=== PATIENT | male | born 1950 | race Caucasian/White ===

== ENCOUNTER 2016-07-22 17:01 | Inpatient (IN) | payer MEDICARE, OTHER ==
[~2016-07-22] VITALS: Ht 177.8 cm; Wt 83.1 kg
[2016-07-22 17:50] LABS: BASO % 1 % (0-3); EOS % 1 % (0-3); HEMATOCRIT 41.8 % (39.0-53.0); HEMOGLOBIN 13.9 g/dL (13.0-17.5); LYMPH # 1.9 x10^3/uL (1.0-4.8); LYMPH % 24 % (24-48); MEAN CORPUSCULAR HEMOGLOBIN 32 pg (25-35); MEAN CORPUSCULAR HGB CONC 33 g/dL (31-37); MEAN CORPUSCULAR VOLUME 97 fL (79-100); MONO % 7 % (0-9); NEUT % 68 % (31-73); PLATELET COUNT 175 x10^3/uL (140-400); RED BLOOD COUNT 4.32 x10^6/uL (4.30-5.70); RED CELL DISTRIBUTION WIDTH 13.2 % (11.5-14.5)
[2016-07-22 18:01] LABS: CALCIUM 9.1 mg/dL (8.5-10.1); GFR 74.8; POTASSIUM 4.3 mmol/L (3.5-5.1)
[2016-07-22 18:07] LABS: ALBUMIN 3.7 g/dL (3.4-5.0); DIRECT BILIRUBIN 0.1 mg/dL (0.0-0.2); TOTAL BILIRUBIN 0.5 mg/dL (0.2-1.0); TOTAL PROTEIN 6.7 g/dL (6.4-8.2)
--- NOTE | 2016-07-22 19:00 | RAD ---
PROCEDURE CT head without contrast. HISTORY Balance difficulties and left-sided weakness. TECHNIQUE Noncontrast CT head was obtained. One or more of the following individualized dose reduction techniques were utilized for this exam: 1. Automated exposure control. 2. Adjustment of the mA and/or kV according to patient's size. 3. Use of iterative reconstruction technique. COMPARISON None. FINDINGS Subdural collection on the right overlies the frontal and parietal lobes measuring up to 3 centimeters short axis, lobulated in appearance. This has hyperdense and hypodense components, mostly hypodense. There is significant mass effect on the underlying brain parenchyma with 14 millimeters of midline shift at the level of the foramen of Monro. No definite intraparenchymal hemorrhage is identified. There is no acute infarct. There is mass effect on the right lateral ventricle, mild left lateral ventricle entrapment suspected. There is no depressed skull fracture. Paranasal sinuses and mastoid air cells are clear. This critical report was called to Dr. Perry at 1855 hours. IMPRESSION Subdural collection on the right, has hyperdense and hypodense components. This is most likely a subacute subdural hematoma. Additional history from the ER physician includes fall about a month ago. Neurosurgery consult is advised. Electronically signed by: Fer Kirby MD (Jul 22, 2016 18:59:13)
[2016-07-22] MEDS ORDERED: PROPOFOL 20 ML IV ONE (20:00)
[2016-07-22] MEDS ORDERED: DEXAMETHASONE SOD PHOS 20 MG/5 ML VIAL. ONE (20:01)
[2016-07-22] MEDS ORDERED: LIDOCAINE 2% 100 MG/5 ML DISP.SYRIN. ONE (20:01)
[2016-07-22] MEDS ORDERED: ONDANSETRON PF 4 MG/2 ML VIAL. ONE (20:01)
--- NOTE | 2016-07-22 20:01 | PDOC ---
SUBJECTIVE Subjective Briefly, 66M who present to ED with increased left sided weakness and problems with balance and coordination due to left sided issues. Also reports intermittent right sided headache that is more prominent over the last couple days. These events gradually increased over the last few weeks but have been worse of the last two days. He reports falling on ice in May of this year, hitting the back of his head. He did not seek medical attention at that time. He denies visual changes or nausea at this time. Imaging revealed a large subacute/chronic subdural hematoma with prominent midline shift for which NS is consulted. OBJECTIVE Objective CT head shows largely hypodense subdural collection right frontoparietal region measuring approx 2 cm with concordant midline shift. Vital Signs Vital Signs Date Time Temp Pulse Resp B/P Pulse Ox O2 Delivery O2 Flow Rate FiO2 07/22/16 17:06 98.0 64 18 146/79 97 Room Air 98.0 PHYSICAL EXAM Physical Exam AAOx4, NAD, CN intact, LAM 4/5 left and 5/5 right, sensation intact LT ASSESSMENT/PLAN Assessment/Plan 66M with large subacute/chronic SDH with prominent mass effect and midline shift -options discussed with the patient, given significance of radiographic findings and correlate symptoms, surgical decompression/evacuation is recommended -consented for burrhole evacuation of subacute/chornic right subdural hematoma -all questions answered, all in agreement Problems: COMMENT Lab Laboratory Tests Test 07/22/16 17:42 White Blood Count 8.0x10^3/uL (4.0-11.0) Red Blood Count 4.32x10^6/uL (4.30-5.70) Hemoglobin 13.9g/dL (13.0-17.5) Hematocrit 41.8% (39.0-53.0) Mean Corpuscular Volume 97fL (79-100) Mean Corpuscular Hemoglobin 32pg (25-35) Mean Corpuscular Hemoglobin Concent 33g/dL (31-37) Red Cell Distribution Width 13.2% (11.5-14.5) Platelet Count 175x10^3/uL (140-400) Neutrophils (%) (Auto) 68% (31-73) Lymphocytes (%) (Auto) 24% (24-48) Monocytes (%) (Auto) 7% (0-9) Eosinophils (%) (Auto) 1% (0-3) Basophils (%) (Auto) 1% (0-3) Neutrophils # (Auto) 5.4x10^3uL (1.8-7.7) Lymphocytes # (Auto) 1.9x10^3/uL (1.0-4.8) Monocytes # (Auto) 0.5x10^3/uL (0.0-1.1) Eosinophils # (Auto) 0.1x10^3/uL (0.0-0.7) Basophils # (Auto) 0.0x10^3/uL (0.0-0.2) Prothrombin Time 13.0SEC (11.7-14.0) Prothromb Time International Ratio 1.0 (0.8-1.1) Activated Partial Thromboplast Time 24SEC (24-38) Sodium Level 144mmol/L (136-145) Potassium Level 4.3mmol/L (3.5-5.1) Chloride Level 105mmol/L (98-107) Carbon Dioxide Level 28mmol/L (21-32) Anion Gap 11 (6-14) Blood Urea Nitrogen 21mg/dL (8-26) Creatinine 1.0mg/dL (0.7-1.3) Estimated GFR (Cockcroft-Gault) 74.8 Glucose Level 105mg/dL (70-99) Calcium Level 9.1mg/dL (8.5-10.1) Total Bilirubin 0.5mg/dL (0.2-1.0) Direct Bilirubin 0.1mg/dL (0.0-0.2) Aspartate Amino Transf (AST/SGOT) 35U/L (15-37) Alanine Aminotransferase (ALT/SGPT) 34U/L (16-63) Alkaline Phosphatase 66U/L (46-116) Troponin I Quantitative < 0.017ng/mL (0.000-0.055) Total Protein 6.7g/dL (6.4-8.2) Albumin 3.7g/dL (3.4-5.0) MILLER SINGH MD Jul 22, 2016 20:00
[2016-07-22] MEDS ORDERED: FENTANYL PF 100 MCG/2 ML VIAL. ONE (20:03)
[2016-07-22] MEDS ORDERED: LIDOCAINE 1%/EPI 1:100,000 20 ML VIAL. ONE (20:20)
--- NOTE | 2016-07-22 20:20 | PHYS DOC ---
Past Medical History Past Medical History: Other Additional Past Medical Histor: enlarged prostate Past Surgical History: Other Additional Past Surgical Histo: mitral valve repair Additional Information: quit in 1982 Alcohol Use: Occasionally Drug Use: None Adult General Chief Complaint Chief Complaint: NEURO SYMPTOMS/DEFICITS HPI HPI 66-year-old male presenting to the emergency department with worsening coordination over the past 2 weeks. He reports a remote history of having head trauma about a month ago. Since then he has had worsening neurologic complaints including veering to the left when walking, difficulty buttoning his shirt, left leg dragging while walking. He denies chest pain or shortness of breath. He denies vision changes. No slurring of speech or garbled speech. Location brain. Duration constant. No alleviating factors present. No specific timing. Review of systems is negative for chest pain shortness of breath abdominal pain nausea vomiting fevers or chills. All other review of systems is negative unless otherwise noted in history of present illness. Review of Systems Review of Systems SEE ABOVE. Current Medications Current Medications Current Medications Medications (Trade) Dose Ordered Sig/Kassandra Start Time Stop Time Status Last Admin Dose Admin Dexamethasone Sodium Phosphate (Decadron) 20 mg STK-MED ONCE 07/22/16 20:01 07/22/16 20:02 DC Fentanyl Citrate (Fentanyl 2ml Vial) 100 mcg STK-MED ONCE 07/22/16 20:03 07/22/16 20:04 DC Lidocaine HCl 100 mg STK-MED ONCE 07/22/16 20:01 07/22/16 20:02 DC Ondansetron HCl (Zofran) 4 mg STK-MED ONCE 07/22/16 20:01 07/22/16 20:02 DC Propofol (Diprivan) 20 ml @ As Directed STK-MED ONCE 07/22/16 20:00 07/22/16 20:01 DC Allergies Allergies Allergies Coded Allergies Type Severity Reaction Last Updated Verified No Known Drug Allergies 07/22/16 No Physical Exam Physical Exam Constitutional: Well developed, well nourished, no acute distress, non-toxic appearance. [] HENT: Normocephalic, atraumatic, bilateral external ears normal, oropharynx moist, no oral exudates, nose normal. [] Eyes: PERRLA, EOMI, conjunctiva normal, no discharge. [] Neck: Normal range of motion, no tenderness, supple, no stridor. [] Cardiovascular:Heart rate regular rhythm, no murmur [] Lungs & Thorax: Bilateral breath sounds clear to auscultation [] Abdomen: Bowel sounds normal, soft, no tenderness, no masses, no pulsatile masses. [] Skin: Warm, dry, no erythema, no rash. [] Back: No tenderness, no CVA tenderness. [] Extremities: No tenderness, no cyanosis, no clubbing, ROM intact, no edema. [] Neurologic: Mental status: Awake oriented and alert x3 Cranial nerves: Extraocular movements intact, eyebrows rodrigo bilaterally smile symmetric, uvula elevation, shoulder shrug intact, tongue protrusion normal Sensation: equal and normal in all extremities Strength: 4/5 in upper and lower extremities on the left. 5/5 in the upper and lower extremities and right. Dysdiadochokinesia present. Poor finger to nose. Psychologic: Affect normal, judgement normal, mood normal. [] Current Patient Data Vital Signs Vital Signs Date Time Temp Pulse Resp B/P Pulse Ox O2 Delivery O2 Flow Rate FiO2 07/22/16 17:06 98.0 64 18 146/79 97 Room Air 98.0 Lab Values Laboratory Tests Test 07/22/16 17:42 White Blood Count 8.0x10^3/uL (4.0-11.0) Red Blood Count 4.32x10^6/uL (4.30-5.70) Hemoglobin 13.9g/dL (13.0-17.5) Hematocrit 41.8% (39.0-53.0) Mean Corpuscular Volume 97fL (79-100) Mean Corpuscular Hemoglobin 32pg (25-35) Mean Corpuscular Hemoglobin Concent 33g/dL (31-37) Red Cell Distribution Width 13.2% (11.5-14.5) Platelet Count 175x10^3/uL (140-400) Neutrophils (%) (Auto) 68% (31-73) Lymphocytes (%) (Auto) 24% (24-48) Monocytes (%) (Auto) 7% (0-9) Eosinophils (%) (Auto) 1% (0-3) Basophils (%) (Auto) 1% (0-3) Neutrophils # (Auto) 5.4x10^3uL (1.8-7.7) Lymphocytes # (Auto) 1.9x10^3/uL (1.0-4.8) Monocytes # (Auto) 0.5x10^3/uL (0.0-1.1) Eosinophils # (Auto) 0.1x10^3/uL (0.0-0.7) Basophils # (Auto) 0.0x10^3/uL (0.0-0.2) Prothrombin Time 13.0SEC (11.7-14.0) Prothrombin Time INR 1.0 (0.8-1.1) PTT 24SEC (24-38) Sodium Level 144mmol/L (136-145) Potassium Level 4.3mmol/L (3.5-5.1) Chloride Level 105mmol/L (98-107) Carbon Dioxide Level 28mmol/L (21-32) Anion Gap 11 (6-14) Blood Urea Nitrogen 21mg/dL (8-26) Creatinine 1.0mg/dL (0.7-1.3) Estimated GFR (Cockcroft-Gault) 74.8 Glucose Level 105mg/dL (70-99) H Calcium Level 9.1mg/dL (8.5-10.1) Total Bilirubin 0.5mg/dL (0.2-1.0) Direct Bilirubin 0.1mg/dL (0.0-0.2) Aspartate Amino Transferase (AST) 35U/L (15-37) Alanine Aminotransferase (ALT) 34U/L (16-63) Alkaline Phosphatase 66U/L (46-116) Troponin I Quantitative < 0.017ng/mL (0.000-0.055) Total Protein 6.7g/dL (6.4-8.2) Albumin 3.7g/dL (3.4-5.0) Laboratory Tests 07/22/16 17:42 Laboratory Tests 07/22/16 17:42 EKG EKG [] Radiology/Procedures Radiology/Procedures [] Course & Med Decision Making Course & Med Decision Making Pertinent Labs and Imaging studies reviewed. (See chart for details) [] 66-year-old male presenting to the emergency department with neurologic symptoms after the head trauma was approximately one month ago. Vital signs afebrile normal heart rate. Blood pressure mildly elevated. Pertinent physical exam shows weakness on the left upper and lower extremity. Cerebellar findings present. Head CT shows significant subdural with midline shift. Neurosurgery called immediately. Dr. Padron arrived in the emergency department and took the patient to the operating room for craniotomy. Dragon Disclaimer Dragon Disclaimer This electronic medical record was generated, in whole or in part, using a voice recognition dictation system. Departure Departure Impression: Primary Impression: Subdural hematoma, acute Disposition: ADMITTED INPATIENT Admitting Physician: Jose E Pettit Condition: STABLE Referrals: PRINCESS MALHOTRA MD (PCP) Critical Care Time Critical care time was [35] minutes exclusive of procedures. Time was spent evaluating the patient, ordering blood tests, reevaluating the patient's neurologic exam, discussing with neurosurgeon, documenting and discussing with the admitting provider. ELTON MATA MD Jul 22, 2016 20:19
[2016-07-22] MEDS ORDERED: THROMBIN 20,000 UNIT SPRAY.SYRN KIT TP ONE (20:21)
[2016-07-22] MEDS ORDERED: GELATIN SPONGE SIZE 100. ONE (20:21)
[2016-07-22] MEDS ORDERED: SURGICEL HEMOSTAT 4X8 EACH. ONE (20:21)
[2016-07-22] MEDS ORDERED: BACITRACIN 50,000 UNIT in IV NORMAL SALINE 1000ML BAG 1,000 ML IRR ONE (20:30)
[2016-07-22] MEDS ORDERED: IV RINGERS,LACTATED 1000ML 1,000 ML IV SCH (20:32)
[2016-07-22 20:40] LABS: BARBITURATES NEG (NEG); BENZODIAZEPINES NEG (NEG); CANNABINOIDS NEG (NEG); COCAINE NEG (NEG); METHADONE NEG (NEG); OPIATES NEG (NEG); PHENCYCLIDINE NEG (NEG)
--- NOTE | 2016-07-22 20:41 | PDOC1 ---
History and Physical Date of Admission Date of Admission 07/22/16 Identification/Chief Complaint Chief Complaint headache, left side weakness Problems: Source Source: Caregiver, Chart review History of Present Illness History of Present Illness HPI HPI 66-year-old male presenting to the emergency department with worsening coordination for 2 days. Pt fell on ice in 05/2016, not syncope, since then he has had headache daily, especially at night. Right and middle forehead. He started to feel left side mild weakness last week in the gym doing weight training, then hard coordinate for writing, bottoning his shirt ,ect for 2 days. no vision, hearing change, no fever, chills, chest pain, speech or swallow problem. CT head in ER showed right side subdural hematoma, will get emergent burrhole hematoma evacuation by neurosx now. Past Medical History Past Medical History BPH Past Surgical History Past Surgical History MVRepair, right shoulder sx Family History Family History: No Significant Social History Smoke: No ALCOHOL: none Drugs: None Current Problem List Problem List Problems Medical Problems: (1) Subdural hematoma, acute Status: Acute Current Medications Current Medications Current Medications Medications (Trade) Dose Ordered Sig/Kassandra Start Time Stop Time Status Last Admin Dose Admin Acetaminophen (Tylenol) 650 mg PRN Q6HRS PRN 07/22/16 20:45 UNV Acetaminophen/ Hydrocodone Bitart (Lortab 5/325) 1 tab PRN Q4HRS PRN 07/22/16 20:45 UNV Bacitracin/Sodium Chloride (Iv Sodium Chloride 0.9% 1000ml Bag) 1,000 ml @ 1,000 mls/hr 1X PERIOP ONCE 07/22/16 20:30 07/22/16 21:29 Cellulose 1 each 1 each STK-MED ONCE 07/22/16 20:21 07/22/16 20:22 DC Dexamethasone Sodium Phosphate (Decadron) 20 mg STK-MED ONCE 07/22/16 20:01 07/22/16 20:02 DC Fentanyl Citrate 100 mcg 100 mcg STK-MED ONCE 07/22/16 20:03 07/22/16 20:04 DC Gelatin (Gelfoam Size 100) 1 each STK-MED ONCE 07/22/16 20:21 07/22/16 20:22 DC Lactated Ringer's (Iv Lactated Ringers) 1,000 ml @ 100 mls/hr Q10H 07/22/16 20:32 07/23/16 06:31 UNV Lidocaine HCl 100 mg STK-MED ONCE 07/22/16 20:01 07/22/16 20:02 DC Lidocaine/ Epinephrine (Xylocaine 1%-Epi 1:100,000) 20 ml STK-MED ONCE 07/22/16 20:20 07/22/16 20:21 DC Morphine Sulfate 1 mg PRN Q1HR PRN 07/22/16 20:45 UNV Ondansetron HCl (Zofran) 4 mg PRN Q6HRS PRN 07/22/16 20:45 UNV Propofol (Diprivan) 20 ml @ As Directed STK-MED ONCE 07/22/16 20:00 07/22/16 20:01 DC Thrombin 20,000 unit STK-MED ONCE 07/22/16 20:21 07/22/16 20:22 DC Allergies Allergies Allergies Coded Allergies Type Severity Reaction Last Updated Verified No Known Drug Allergies 07/22/16 No ROS Review of System CONSTITUTIONAL: No fever or chills EYES: No recent changes SKIN: No rash or itching CARDIOVASCULAR: No chest pain, syncope, palpitations, or edema RESPIRATORY: No SOB or cough GASTROINTESTINAL: No nausea, vomiting or abdominal pain NEUROLOGICAL: No headaches or weakness ENDOCRINE: No cold or heat intolerance GENITOURINARY: No urgency or frequency of urination MUSCULOSKELETAL: No back pain or joint pain LYMPHATICS: No enlarged lymph nodes PSYCHIATRIC: No anxiety or depression Physical Exam Physical Exam GEN.: No apparent distress. Alert and oriented. HEENT: Head is normocephalic, atraumatic NECK: Supple. LUNGS: Clear to auscultation. HEART: RRR, S1, S2 present. Peripheral pulses intact ABDOMEN: Soft, nontender. Positive bowel sounds. EXTREMITIES: Without any cyanosis. left side mild weaker, strength 4/5. NEUROLOGIC: Normal speech, normal tone PSYCHIATRIC: Normal affect, normal mood. SKIN: No ulcerations Vitals Vitals Vital Signs Date Time Temp Pulse Resp B/P Pulse Ox O2 Delivery O2 Flow Rate FiO2 07/22/16 19:56 68 178/75 07/22/16 19:26 16 99 Room Air 07/22/16 17:06 98.0 98.0 Labs Labs Laboratory Tests Test 07/22/16 17:42 White Blood Count 8.0x10^3/uL (4.0-11.0) Red Blood Count 4.32x10^6/uL (4.30-5.70) Hemoglobin 13.9g/dL (13.0-17.5) Hematocrit 41.8% (39.0-53.0) Mean Corpuscular Volume 97fL (79-100) Mean Corpuscular Hemoglobin 32pg (25-35) Mean Corpuscular Hemoglobin Concent 33g/dL (31-37) Red Cell Distribution Width 13.2% (11.5-14.5) Platelet Count 175x10^3/uL (140-400) Neutrophils (%) (Auto) 68% (31-73) Lymphocytes (%) (Auto) 24% (24-48) Monocytes (%) (Auto) 7% (0-9) Eosinophils (%) (Auto) 1% (0-3) Basophils (%) (Auto) 1% (0-3) Neutrophils # (Auto) 5.4x10^3uL (1.8-7.7) Lymphocytes # (Auto) 1.9x10^3/uL (1.0-4.8) Monocytes # (Auto) 0.5x10^3/uL (0.0-1.1) Eosinophils # (Auto) 0.1x10^3/uL (0.0-0.7) Basophils # (Auto) 0.0x10^3/uL (0.0-0.2) Prothrombin Time 13.0SEC (11.7-14.0) Prothromb Time International Ratio 1.0 (0.8-1.1) Activated Partial Thromboplast Time 24SEC (24-38) Sodium Level 144mmol/L (136-145) Potassium Level 4.3mmol/L (3.5-5.1) Chloride Level 105mmol/L (98-107) Carbon Dioxide Level 28mmol/L (21-32) Anion Gap 11 (6-14) Blood Urea Nitrogen 21mg/dL (8-26) Creatinine 1.0mg/dL (0.7-1.3) Estimated GFR (Cockcroft-Gault) 74.8 Glucose Level 105mg/dL (70-99) Calcium Level 9.1mg/dL (8.5-10.1) Total Bilirubin 0.5mg/dL (0.2-1.0) Direct Bilirubin 0.1mg/dL (0.0-0.2) Aspartate Amino Transf (AST/SGOT) 35U/L (15-37) Alanine Aminotransferase (ALT/SGPT) 34U/L (16-63) Alkaline Phosphatase 66U/L (46-116) Troponin I Quantitative < 0.017ng/mL (0.000-0.055) Total Protein 6.7g/dL (6.4-8.2) Albumin 3.7g/dL (3.4-5.0) Laboratory Tests Test 07/22/16 17:42 White Blood Count 8.0x10^3/uL (4.0-11.0) Red Blood Count 4.32x10^6/uL (4.30-5.70) Hemoglobin 13.9g/dL (13.0-17.5) Hematocrit 41.8% (39.0-53.0) Mean Corpuscular Volume 97fL (79-100) Mean Corpuscular Hemoglobin 32pg (25-35) Mean Corpuscular Hemoglobin Concent 33g/dL (31-37) Red Cell Distribution Width 13.2% (11.5-14.5) Platelet Count 175x10^3/uL (140-400) Neutrophils (%) (Auto) 68% (31-73) Lymphocytes (%) (Auto) 24% (24-48) Monocytes (%) (Auto) 7% (0-9) Eosinophils (%) (Auto) 1% (0-3) Basophils (%) (Auto) 1% (0-3) Neutrophils # (Auto) 5.4x10^3uL (1.8-7.7) Lymphocytes # (Auto) 1.9x10^3/uL (1.0-4.8) Monocytes # (Auto) 0.5x10^3/uL (0.0-1.1) Eosinophils # (Auto) 0.1x10^3/uL (0.0-0.7) Basophils # (Auto) 0.0x10^3/uL (0.0-0.2) Prothrombin Time 13.0SEC (11.7-14.0) Prothromb Time International Ratio 1.0 (0.8-1.1) Activated Partial Thromboplast Time 24SEC (24-38) Sodium Level 144mmol/L (136-145) Potassium Level 4.3mmol/L (3.5-5.1) Chloride Level 105mmol/L (98-107) Carbon Dioxide Level 28mmol/L (21-32) Anion Gap 11 (6-14) Blood Urea Nitrogen 21mg/dL (8-26) Creatinine 1.0mg/dL (0.7-1.3) Estimated GFR (Cockcroft-Gault) 74.8 Glucose Level 105mg/dL (70-99) Calcium Level 9.1mg/dL (8.5-10.1) Total Bilirubin 0.5mg/dL (0.2-1.0) Direct Bilirubin 0.1mg/dL (0.0-0.2) Aspartate Amino Transf (AST/SGOT) 35U/L (15-37) Alanine Aminotransferase (ALT/SGPT) 34U/L (16-63) Alkaline Phosphatase 66U/L (46-116) Troponin I Quantitative < 0.017ng/mL (0.000-0.055) Total Protein 6.7g/dL (6.4-8.2) Albumin 3.7g/dL (3.4-5.0) VTE Prophylaxis Ordered VTE Prophylaxis Devices: Yes VTE Pharmacological Prophylaxi: No Assessment/Plan Assessment/Plan 1. subacute/chronic right subdural hematoma post fall 2. BPH plan: 1. fu with neurosx, will get burrhole hematoma evacuation tonight, then transfer to ICU care depends on the sx, keep on NPO for now . IVF for 1 L 2. may need to resume home po meds if able to swallow gi ppx neuro check q4h GRANT IBRAHIM MD Jul 22, 2016 20:41
[2016-07-22] MEDS ORDERED: ONDANSETRON PF 4 MG/2 ML VIAL. IV PRN ×2 (20:45→22:30)
[2016-07-22] MEDS ORDERED: MORPHINE SULFATE 2 MG/ML DISP.SYRIN. IV PRN (20:45)
[2016-07-22] MEDS ORDERED: HYDROCODONE/APAP 5/325MG TABLET. PO PRN (20:45)
[2016-07-22] MEDS ORDERED: ACETAMINOPHEN 325 MG TABLET. PO PRN (20:45)
[2016-07-22 20:54] LABS: ETHANOL, URINE NEG (NEG)
[2016-07-22] MEDS ORDERED: ROCURONIUM 50 MG/5 ML VIAL. ONE (21:00)
[2016-07-22] MEDS ORDERED: EPHEDRINE PF IN SALINE 50 MG/5 ML DISP.SYRIN. IV ONE (21:35)
[2016-07-22] MEDS ORDERED: PHENYLEPHRINE in 0.9% NACL PF 1 MG/10 ML DISP.SYRIN. IV ONE (21:35)
[2016-07-22] MEDS ORDERED: CEFAZOLIN PREMIX 2 GM/50 ML BAG. IV ONE (22:00)
[2016-07-22] MEDS ORDERED: DESFLURANE 61 TO 120 MINUTES IH ONE (22:21)
[2016-07-22] MEDS ORDERED: NEOSTIGMINE METHYLSULFATE 5 MG/5 ML SYRINGE. ONE (22:22)
[2016-07-22] MEDS ORDERED: GLYCOPYRROLATE 1 MG/5 ML VIAL. ONE (22:22)
--- NOTE | 2016-07-22 22:23 | PDOC ---
BRIEF OPERATIVE NOTE Date: Jul 22, 2016 Pre-Op Diagnosis subacute/chronic right subdural hematoma Post-Op Diagnosis same Procedure Performed right cranial burrholes x2 for evacuation of subdural hematoma Surgeon Vito Buckshot Swage Operator none Anesthesiologist Alena Anesthesia Type: General Blood Loss 10mL Specimens Obtained subdural hematoma Findings mostly chronic subdural hematoma under pressure Complications none apparent MILLER SINGH MD Jul 22, 2016 22:23
[2016-07-22 22:30] VITALS: BP 166/90
[2016-07-22] MEDS ORDERED: FENTANYL PF 100 MCG/2 ML VIAL. IV PRN ×2 (22:30)
[2016-07-22] MEDS ORDERED: OXYCODONE/APAP 5/325 TABLET. PO PRN ×2 (22:30)
[2016-07-22 22:45] VITALS: BP 146/74
[2016-07-22 23:00] VITALS: BP 131/65
[2016-07-22 23:15] VITALS: BP 134/77
[2016-07-22 23:30] VITALS: BP 132/76
[2016-07-23] VITALS (16 sets, daily range): BP systolic 115–141; BP diastolic 66–82
--- NOTE | 2016-07-23 00:33 | ACF ---
Admission Forms Criteria TRAUMATIC BRAIN INJURY, NONSURGICAL TREATMENT Clinical Indications for Admission to Inpatient Care (Place 'X' for any and all applicable criteria): Admission is indicated for head injury and ANY ONE of the following(1)(2)(3)(4)( 5)(6)(7): [ ]I. Postresuscitation or presenting Anu coma scale (GCS) score of less than 13 [X ]II. New focal signs on neurologic examination [ ]III. Persistently diminished level of consciousness (eg, lethargy, disorientation) [ ]IV. Penetrating wounds [ ]V. Evidence of increased ICP (eg, papilledema, persistent vomiting) [ ]. CSF leak(7)(8) [ ]VII. Significant extracranial injuries [ ]VIII. Intracranial pathology on CT scan(6) [ ]IX. Inpatient admission required rather than observation care (Use Traumatic Brain Injury, Nonsurgical Treatment: Observation Care Criteria as appropriate) because of ANY ONE of the following: [ ]a) Intracranial infection identified(8) [ ]b) Cerebral vasospasm identified or suspected [ ]c) Recurrent seizures(9) [ ]d) Surgical intervention or complex wound care required(7)(10) [ ]e) Hemodynamic instability [ ]f) Hypertension requiring inpatient treatment [ ]g) Continuous IV infusion of anticoagulant, platelet inhibitor, vasoactive, or antiarrhythmic Medication(11)(12) [ ]h) Cerebral bleeding, hydrocephalus, or vasospasm monitoring (13) [ ]i ) Other condition, treatment or monitoring requiring inpatient admission Extended stay beyond goal length of stay may be needed for(23)(24) [ ]a) Severe injury [ ]b) Ventilatory failure [ ]c) Intracranial infection [ ]d) Increased ICP [ ]e) Cerebral vasospasm [ ]f) New-onset seizures [ ]g) Severe neurologic deficits [ ]h) Surgical intervention The original [employer] content created by [email or web address] has been revised. The portions of the content which have been revised are identified through the use of italic text or in bold, and [facility] has neither reviewed nor approved the modified material. All other unmodified content is copyright [email or web address]. Please see references footnoted in the original [facility] edition 2016 Admission Criteria Met?: Yes SILVIA COVARRUBIAS Jul 23, 2016 00:33
[2016-07-23] MEDS: CEFAZOLIN SODIUM 1 GM in IV NORMAL SALINE 50ML 50 ML IV SCH ×4 (03:25→22:35)
--- NOTE | 2016-07-23 06:50 | EKG ---
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
[2016-07-23] MEDS ORDERED: FENTANYL PF 100 MCG/2 ML VIAL. IV PRN ×2 (07:00)
[2016-07-23] MEDS ORDERED: MORPHINE SULFATE 2 MG/ML DISP.SYRIN. IV PRN (07:00)
[2016-07-23] MEDS ORDERED: LIDOCAINE 1% 1 ML SYRINGE. ID PRN (07:00)
[2016-07-23] MEDS ORDERED: IV RINGERS,LACTATED 1000ML 1,000 ML IV SCH (07:00)
[2016-07-23] MEDS ORDERED: ONDANSETRON PF 4 MG/2 ML VIAL. IV PRN (07:00)
[2016-07-23] MEDS ORDERED: HYDROMORPHONE 2 MG/ML VIAL. IV PRN (07:00)
[2016-07-23] MEDS ORDERED: PROCHLORPERAZINE 10 MG/2 ML VIAL. IV PRN (07:00)
[2016-07-23] MEDS: PANTOPRAZOLE 40 MG TABLET. PO SCH (07:52)
[2016-07-23] MEDS ORDERED: LATA2.5D3 EACHEYE (07:59)
[2016-07-23] MEDS ORDERED: LORA10TA68 PO (07:59)
[2016-07-23] MEDS ORDERED: ATOR10TA PO (07:59)
--- NOTE | 2016-07-23 09:23 | PDOC ---
SUBJECTIVE Subjective Denies acute complaints. Left strength improved. OBJECTIVE Objective CT head with expected post-op changes. Reduced shift. Some residual air/fluid with SD drain in place. Vital Signs Vital Signs Date Time Temp Pulse Resp B/P Pulse Ox O2 Delivery O2 Flow Rate FiO2 07/23/16 08:00 97.4 61 17 132/80 96 Room Air 97.4 07/23/16 07:48 9 Room Air 07/23/16 07:00 97.4 60 17 132/80 96 Room Air 97.4 07/23/16 06:00 62 10 139/80 97 Room Air 07/23/16 05:00 62 12 128/77 96 Room Air 07/23/16 04:00 98.5 60 13 119/69 97 Room Air 98.5 07/23/16 04:00 Room Air 07/23/16 03:00 62 13 116/66 97 Room Air 07/23/16 02:00 64 12 115/67 96 Room Air 07/23/16 01:00 62 13 119/69 96 Room Air 07/23/16 00:00 Room Air 07/23/16 00:00 98.7 56 11 131/74 96 Room Air 98.7 07/22/16 23:30 54 12 132/76 98 Room Air 07/22/16 23:15 52 14 134/77 98 Room Air 07/22/16 23:00 52 16 131/65 97 Room Air 07/22/16 22:59 98.4 51 16 131/65 98 Room Air 98.4 07/22/16 22:45 50 20 146/74 100 Room Air 07/22/16 22:44 51 16 146/74 100 Room Air 07/22/16 22:30 Room Air 07/22/16 22:30 98.4 50 20 166/90 100 Room Air 98.4 07/22/16 21:29 98.4 49 14 166/90 100 Simple Mask 8 98.4 07/22/16 20:26 60 19 151/74 99 Room Air 07/22/16 19:56 68 178/75 07/22/16 19:26 64 16 157/71 99 Room Air 07/22/16 18:56 64 16 141/71 99 Room Air 07/22/16 18:26 68 16 146/88 98 Room Air 07/22/16 17:43 64 16 140/82 98 Room Air 07/22/16 17:06 98.0 64 18 146/79 97 Room Air 98.0 I & O Intake and Output 07/23/16 07:00 Intake Total 1420 ml Output Total 755 ml Balance 665 ml Intake Oral 805 ml IV Total 615 ml Output Urine Total 725 ml Drainage Total 30 ml PHYSICAL EXAM Physical Exam AAOX4, NAD, LAM now 5/5 throughout, sensation intact LT, BRITTANY intact with 30mL ss out, dressing c/d/i ASSESSMENT/PLAN Assessment/Plan POD 1 burrhole evacuation of right SDH -overall doing well, neurologically improved, radiographically improved -maintain BRITTANY another day -mobilize/PT/OT -d/c [place] -may downgrade from ICU from NS standpoint Problems: COMMENT Lab Laboratory Tests Test 07/22/16 17:42 07/22/16 20:18 White Blood Count 8.0x10^3/uL (4.0-11.0) Red Blood Count 4.32x10^6/uL (4.30-5.70) Hemoglobin 13.9g/dL (13.0-17.5) Hematocrit 41.8% (39.0-53.0) Mean Corpuscular Volume 97fL (79-100) Mean Corpuscular Hemoglobin 32pg (25-35) Mean Corpuscular Hemoglobin Concent 33g/dL (31-37) Red Cell Distribution Width 13.2% (11.5-14.5) Platelet Count 175x10^3/uL (140-400) Neutrophils (%) (Auto) 68% (31-73) Lymphocytes (%) (Auto) 24% (24-48) Monocytes (%) (Auto) 7% (0-9) Eosinophils (%) (Auto) 1% (0-3) Basophils (%) (Auto) 1% (0-3) Neutrophils # (Auto) 5.4x10^3uL (1.8-7.7) Lymphocytes # (Auto) 1.9x10^3/uL (1.0-4.8) Monocytes # (Auto) 0.5x10^3/uL (0.0-1.1) Eosinophils # (Auto) 0.1x10^3/uL (0.0-0.7) Basophils # (Auto) 0.0x10^3/uL (0.0-0.2) Prothrombin Time 13.0SEC (11.7-14.0) Prothromb Time International Ratio 1.0 (0.8-1.1) Activated Partial Thromboplast Time 24SEC (24-38) Sodium Level 144mmol/L (136-145) Potassium Level 4.3mmol/L (3.5-5.1) Chloride Level 105mmol/L (98-107) Carbon Dioxide Level 28mmol/L (21-32) Anion Gap 11 (6-14) Blood Urea Nitrogen 21mg/dL (8-26) Creatinine 1.0mg/dL (0.7-1.3) Estimated GFR (Cockcroft-Gault) 74.8 Glucose Level 105mg/dL (70-99) Calcium Level 9.1mg/dL (8.5-10.1) Total Bilirubin 0.5mg/dL (0.2-1.0) Direct Bilirubin 0.1mg/dL (0.0-0.2) Aspartate Amino Transf (AST/SGOT) 35U/L (15-37) Alanine Aminotransferase (ALT/SGPT) 34U/L (16-63) Alkaline Phosphatase 66U/L (46-116) Troponin I Quantitative < 0.017ng/mL (0.000-0.055) Total Protein 6.7g/dL (6.4-8.2) Albumin 3.7g/dL (3.4-5.0) Urine Opiates Screen Neg (NEG) Urine Methadone Screen Neg (NEG) Urine Barbiturates Neg (NEG) Urine Phencyclidine Screen Neg (NEG) Urine Amphetamine/Methamphetamine Neg (NEG) Urine Benzodiazepines Screen Neg (NEG) Urine Cocaine Screen Neg (NEG) Urine Cannabinoids Screen Neg (NEG) Urine Ethyl Alcohol Neg (NEG) MILLER SINGH MD Jul 23, 2016 09:23
--- NOTE | 2016-07-23 09:39 | PDOC ---
PROGRESS NOTES Chief Complaint Chief Complaint SDH ASSESSMENT AND PLAN: 1. SDH: s/p king hole evacuation on 07/[address] Padron. drain in place. Dr Padron following 2. Dispo: transfer to [facility] floor. Vitals Vitals Vital Signs Date Time Temp Pulse Resp B/P Pulse Ox O2 Delivery O2 Flow Rate FiO2 07/23/16 08:00 97.4 61 17 132/80 96 Room Air 97.4 07/22/16 21:29 8 Physical Exam Physical Exam gauze covering king hole on L temporoparietal area General: Alert, Oriented X3, Cooperative, No acute distress Heart: Regular rate Lungs: Clear Abdomen: Normal bowel sounds Extremities: No edema Skin: No rashes Labs LABS Laboratory Tests Test 07/22/16 17:42 07/22/16 20:18 White Blood Count 8.0x10^3/uL (4.0-11.0) Red Blood Count 4.32x10^6/uL (4.30-5.70) Hemoglobin 13.9g/dL (13.0-17.5) Hematocrit 41.8% (39.0-53.0) Mean Corpuscular Volume 97fL (79-100) Mean Corpuscular Hemoglobin 32pg (25-35) Mean Corpuscular Hemoglobin Concent 33g/dL (31-37) Red Cell Distribution Width 13.2% (11.5-14.5) Platelet Count 175x10^3/uL (140-400) Neutrophils (%) (Auto) 68% (31-73) Lymphocytes (%) (Auto) 24% (24-48) Monocytes (%) (Auto) 7% (0-9) Eosinophils (%) (Auto) 1% (0-3) Basophils (%) (Auto) 1% (0-3) Neutrophils # (Auto) 5.4x10^3uL (1.8-7.7) Lymphocytes # (Auto) 1.9x10^3/uL (1.0-4.8) Monocytes # (Auto) 0.5x10^3/uL (0.0-1.1) Eosinophils # (Auto) 0.1x10^3/uL (0.0-0.7) Basophils # (Auto) 0.0x10^3/uL (0.0-0.2) Prothrombin Time 13.0SEC (11.7-14.0) Prothromb Time International Ratio 1.0 (0.8-1.1) Activated Partial Thromboplast Time 24SEC (24-38) Sodium Level 144mmol/L (136-145) Potassium Level 4.3mmol/L (3.5-5.1) Chloride Level 105mmol/L (98-107) Carbon Dioxide Level 28mmol/L (21-32) Anion Gap 11 (6-14) Blood Urea Nitrogen 21mg/dL (8-26) Creatinine 1.0mg/dL (0.7-1.3) Estimated GFR (Cockcroft-Gault) 74.8 Glucose Level 105mg/dL (70-99) Calcium Level 9.1mg/dL (8.5-10.1) Total Bilirubin 0.5mg/dL (0.2-1.0) Direct Bilirubin 0.1mg/dL (0.0-0.2) Aspartate Amino Transf (AST/SGOT) 35U/L (15-37) Alanine Aminotransferase (ALT/SGPT) 34U/L (16-63) Alkaline Phosphatase 66U/L (46-116) Troponin I Quantitative < 0.017ng/mL (0.000-0.055) Total Protein 6.7g/dL (6.4-8.2) Albumin 3.7g/dL (3.4-5.0) Urine Opiates Screen Neg (NEG) Urine Methadone Screen Neg (NEG) Urine Barbiturates Neg (NEG) Urine Phencyclidine Screen Neg (NEG) Urine Amphetamine/Methamphetamine Neg (NEG) Urine Benzodiazepines Screen Neg (NEG) Urine Cocaine Screen Neg (NEG) Urine Cannabinoids Screen Neg (NEG) Urine Ethyl Alcohol Neg (NEG) Review of Systems Review of Systems no PADILLA or other neurol deficits JOTSIN KRISHNA MD Jul 23, 2016 09:39
--- NOTE | 2016-07-23 13:24 | RAD ---
CT of the head without contrast, 07/23/2016: History: Postop subdural hematoma Comparison is made to yesterday's study. There has been interval placement of 2 king holes in the right frontoparietal calvarium. There is a linear radiopacity extending beneath the inner table of the skull at the surgical site compatible with a surgical drain. There is adjacent pneumocephalus and residual fluid of predominantly low density in what appears to be the subdural space. The degree of effacement of the right lateral ventricle and right to left shift have improved, although there is a moderate residual shift. No intra-axial hemorrhage is seen. IMPRESSION: Interval decrease in size of the mixed density right subdural fluid collection with improvement in the associated mass effect and midline shift since yesterday's study. PQRS Compliance Statement: One or more of the following individualized dose reduction techniques were utilized for this examination: 1. Automated exposure control 2. Adjustment of the mA and/or kV according to patient size 3. Use of iterative reconstruction technique
[2016-07-23] MEDS ORDERED: ZOLPIDEM 5 MG TABLET. PO PRN (20:30)
[2016-07-24 03:00] VITALS: BP 115/69
[2016-07-24] MEDS: PANTOPRAZOLE 40 MG TABLET. PO SCH (05:50)
[2016-07-24] MEDS: CEFAZOLIN SODIUM 1 GM in IV NORMAL SALINE 50ML 50 ML IV SCH (05:53)
[2016-07-24 07:00] VITALS: BP 125/73
--- NOTE | 2016-07-24 09:36 | PDOC ---
SUBJECTIVE Subjective Denies acute complaints. Ambulating without problem. Left side strength remains full. OBJECTIVE Vital Signs Vital Signs Date Time Temp Pulse Resp B/P Pulse Ox O2 Delivery O2 Flow Rate FiO2 07/24/16 07:00 97.8 55 18 125/73 96 Room Air 97.8 07/24/16 03:00 98.1 62 18 115/69 98 Room Air 98.1 07/23/16 23:00 97.9 63 18 126/76 95 Room Air 97.9 07/23/16 20:00 Room Air 07/23/16 19:00 97.5 67 18 130/69 96 Room Air 97.5 07/23/16 14:43 97.8 69 18 127/75 96 Room Air 97.8 07/23/16 12:00 98.3 69 34 119/69 90 Room Air 98.3 07/23/16 11:00 97.4 74 11 119/81 98 Room Air 97.4 07/23/16 10:00 97.4 66 23 130/82 97 Room Air 97.4 07/23/16 09:35 Room Air I & O Intake and Output 07/24/16 07:00 Intake Total 240 ml Output Total 570 ml Balance -330 ml Intake Oral 240 ml Output Urine Total 550 ml Drainage Total 20 ml # Voids 5 PHYSICAL EXAM Physical Exam AAOx4, LAM 5/5, sensation intact LT, normal stance and stride, BRITTANY d/c'ed, incisions c/d/i with aurelia ASSESSMENT/PLAN Assessment/Plan POD 2 s/p burrhole evacuation SDH -doing well overall, neurologically intact -may d/c from NS standpoint if okay with other services -avoid strenuous activity or lifting over 10lb -bowel regimen to avoid straining -keep incisions clean and dry, do not soak, scrub, or submerge -upon d/c, follow up with DUANE Red in two weeks [phone] Problems: MILLER SINGH MD Jul 24, 2016 09:36
[2016-07-24] MEDS ORDERED: POLY17PO5 PO (10:15)
--- NOTE | 2016-07-24 10:19 | PDOC3 ---
Discharge Summary Visit Information Date of Admission: Jul 22, 2016 Date of Discharge: Jul 24, 2016 Admitting Diagnosis: headache Final Diagnosis 1. SDH: s/p king hole evacuation on 07/[address] Padron. drain in place. Problems Medical Problems: (1) Subdural hematoma, acute Status: Acute Brief Hospital Course Allergies Allergies Coded Allergies Type Severity Reaction Last Updated Verified No Known Drug Allergies 07/22/16 No Vital Signs Vital Signs Date Time Temp Pulse Resp B/P Pulse Ox O2 Delivery O2 Flow Rate FiO2 07/24/16 07:00 97.8 55 18 125/73 96 Room Air 97.8 Lab Results Laboratory Tests Test 07/22/16 17:42 07/22/16 20:18 07/23/16 02:00 White Blood Count 8.0x10^3/uL (4.0-11.0) Red Blood Count 4.32x10^6/uL (4.30-5.70) Hemoglobin 13.9g/dL (13.0-17.5) Hematocrit 41.8% (39.0-53.0) Mean Corpuscular Volume 97fL (79-100) Mean Corpuscular Hemoglobin 32pg (25-35) Mean Corpuscular Hemoglobin Concent 33g/dL (31-37) Red Cell Distribution Width 13.2% (11.5-14.5) Platelet Count 175x10^3/uL (140-400) Neutrophils (%) (Auto) 68% (31-73) Lymphocytes (%) (Auto) 24% (24-48) Monocytes (%) (Auto) 7% (0-9) Eosinophils (%) (Auto) 1% (0-3) Basophils (%) (Auto) 1% (0-3) Neutrophils # (Auto) 5.4x10^3uL (1.8-7.7) Lymphocytes # (Auto) 1.9x10^3/uL (1.0-4.8) Monocytes # (Auto) 0.5x10^3/uL (0.0-1.1) Eosinophils # (Auto) 0.1x10^3/uL (0.0-0.7) Basophils # (Auto) 0.0x10^3/uL (0.0-0.2) Prothrombin Time 13.0SEC (11.7-14.0) Prothromb Time International Ratio 1.0 (0.8-1.1) Activated Partial Thromboplast Time 24SEC (24-38) Sodium Level 144mmol/L (136-145) Potassium Level 4.3mmol/L (3.5-5.1) Chloride Level 105mmol/L (98-107) Carbon Dioxide Level 28mmol/L (21-32) Anion Gap 11 (6-14) Blood Urea Nitrogen 21mg/dL (8-26) Creatinine 1.0mg/dL (0.7-1.3) Estimated GFR (Cockcroft-Gault) 74.8 Glucose Level 105mg/dL (70-99) Calcium Level 9.1mg/dL (8.5-10.1) Total Bilirubin 0.5mg/dL (0.2-1.0) Direct Bilirubin 0.1mg/dL (0.0-0.2) Aspartate Amino Transf (AST/SGOT) 35U/L (15-37) Alanine Aminotransferase (ALT/SGPT) 34U/L (16-63) Alkaline Phosphatase 66U/L (46-116) Troponin I Quantitative < 0.017ng/mL (0.000-0.055) Total Protein 6.7g/dL (6.4-8.2) Albumin 3.7g/dL (3.4-5.0) Urine Opiates Screen Neg (NEG) Urine Methadone Screen Neg (NEG) Urine Barbiturates Neg (NEG) Urine Phencyclidine Screen Neg (NEG) Urine Amphetamine/Methamphetamine Neg (NEG) Urine Benzodiazepines Screen Neg (NEG) Urine Cocaine Screen Neg (NEG) Urine Cannabinoids Screen Neg (NEG) Urine Ethyl Alcohol Neg (NEG) Nasal Screen MRSA (PCR) Negative (Negative) Brief Hospital Course Mr. Freeman, 66 yo male, admit with worse coordination over 2 weeks. s/p head trauma about a month ago. Had gait instability, and difficulty buttoning his shirt, left leg dragging while walking. CT showed subacte SDH w/ mass effect : s/p king hole evacuation on 07/[address] Padron. drain placed, removed at 24 hours. f/u CT at [address] Padron to follow as outpatient pt felt well f/u PCP Dr. Boswell Discharge Information Condition at Discharge: Improved Follow Up: Weeks Disposition/Orders: D/C to Home Scheduled Atorvastatin Calcium (Lipitor) 1 TAB PO QHS (Reported) Latanoprost (Latanoprost) 1 DROP EACHEYE QHS (Reported) Loratadine (Claritin) 1 TAB PO DAILY (Reported) Patient Instructions Patient Instructions f/u Dr. Boswell, Dr. Padron 2 weeks, ROBBIE moses IRA W MD Jul 24, 2016 10:19
[2016-07-24] MEDS ORDERED: POLYETHYLENE GLYCOL 3350 17 GM PACKET. PO ONE (10:30)
[2016-07-24 11:00] VITALS: BP 130/81
--- NOTE | 2016-07-24 13:44 | PATHOLOGY ---
PATHOLOGY REPORT * * * * * * * * FINAL DIAGNOSIS: Tissue designated "blood clot", subdural: - Tissue insufficient for diagnosis. COMMENT: The specimen apparently did not survive processing. (MASOUD:; d/t: 07/24/16) REPORT ELECTRONICALLY SIGNED BY: Ta Ellington M.D. DATE/TIME: 07/24/2016 13:43 * * * * * * * * GROSS PATHOLOGY: The specimen is received in formalin, labeled "Jorge A De La Torre Sr and blood clot." Received is a < 0.1 x < 0.1 x < 0.2 cm aggregate of red-carpenter possible soft tissue fragments. The specimen is filtered and entirely submitted in cassette A1. Due to the minute nature of the specimen, the specimen may not survive processing. (TTL; 07/23/2016) INITIAL CPT CODE(S): A; 13757 Professional services performed [place] [facility] [address] Technical services performed by [facility] at [address] [place] [address]. SPECIMEN(S) RECEIVED: A.Blood clot CLINICAL HISTORY: Subdural hematoma PATIENT: JORGE A DE LA TORRE SR /AGE: 10 1950 (Age: 66) PATIENT #: [id number] ALT CASE #: SPECIMEN COLLECTION DATE: 07/22/2016 SPECIMEN RECEIVED DATE: 07/23/2016 [facility] - [address] [place] [address] - PHONE: [phone] * * * END OF REPORT * * *
--- NOTE | 2016-07-24 18:33 | OP ---
DATE OF SURGERY: 07/22/2016 SURGEON: Juan Singh M.D. [employer] MACHINE HAND: None. PREOPERATIVE DIAGNOSES: Subacute/chronic right subdural hematoma from prior trauma. POSTOPERATIVE DIAGNOSES: Subacute/chronic right subdural hematoma from prior trauma. PROCEDURE: Right cranial king holes x 2 for evacuation of subdural hematoma. ANESTHESIA: General. COMPLICATIONS: None intraprocedurally. INDICATIONS FOR THE PROCEDURE: The patient is a pleasant 66-year-old gentleman who reports that he slipped on ice and fell hitting the back of his head a couple of months ago. So, over the past few weeks, he has developed increase difficulty with function of the left side of his body. It has become significantly more prominent in the last couple of days and he has noted some increase in headache as well. Imaging was obtained showing a very large subacute chronic right subdural hematoma with a prominent mass effect and midline shift nearly 2 cm. It was felt that an emergent evacuation of this would be beneficial given the significant radiographic findings and his prominent symptoms. Please refer to the patient's chart for additional details. DESCRIPTION OF PROCEDURE: After informed consent was obtained, the patient was brought into the operating room. He was placed under general anesthesia. He was placed in the supine position with the head in midline. All pressure points were checked and padded appropriately. The right superior and right side of the head was prepped and draped in usual sterile fashion. Approximately, two 3 cm incisions were made; one was a couple centimeters anterior to the Prolene suture just medial to the superior temporal line and one just posterior to this. Incisions were made with a 10 blade scalpel. Monopolar electrocautery was utilized to dissect the soft tissues down to the bone. Self-retainers were instituted and a pneumatic lab aid was utilized to create a king hole at each site. Once this was completed, incision was made in the dura at both locations with a 15 blade scalpel. Chronic appearing hematoma emerged under pressure from both locations; some of this was saved for specimen. Gentle irrigation was instituted through each king hole sites utilizing warmed isotonic saline, this was performed until the return was consistently clear. Additionally, a 14-Kiswahili red rubber catheter was instituted through each king hole sites in different trajectories to gently further facilitate gentle irrigation and additional evacuation of hemorrhagic products. The majority of the hematoma appeared chronic. There were some subacute appearing hemorrhages emerging as well. No active bleeding was identified or noted. Upon completion of gentle irrigation with continuous clear return in all trajectories, a 10-Kiswahili round Kenney drain was instituted through the posterior king hole site and into the subdural space and tunnel under the skin posterior medially and secured to the skin with nylon suture. The BRITTANY bulb was attached to gravity. Gelfoam was instituted at both king hole sites and a titanium king hole cover was instituted at the anterior site, which did not contain a drain. This was secured with 4-mm screws with good anatomical contour. The galea then was reapproximated at both locations with 2-0 Vicryl in interrupted invert fashion and the skin was reapproximated at both incisions with aurelia. The wounds were dressed with Xeroform, Telfa, 4 x 4, and Tegaderm. At the end of procedure, all needle and sponge counts were correct x 2. The patient was subsequently extubated in the operating room and taken to the ICU in stable condition. There were no intraprocedural complications apparent. JUAN SINGH MD DR: TOPHER/praveen JOB#: [id number] / [id number]
--- NOTE | 2016-07-25 00:47 | CONS ---
DATE OF CONSULTATION: 07/22/2016 REASON FOR CONSULTATION: Traumatic subdural hematoma with left-sided weakness. HISTORY OF PRESENT ILLNESS: The patient is a 66-year-old gentleman who presents to the Emergency Department with increased left-sided weakness and problems with balance and coordination due to the left-sided issues. He is seen in the emergency department at this present time. He reports over the last couple of days that he has had some intermittent right-sided headaches that have been more prominent recently. He explains that these events gradually increased over the last few weeks, but they have been significantly worse over the last 2 days. He reports that he fell on the ice in 05/2016 hitting the back of his head. He did not seek medical attention at that time and was otherwise asymptomatic at that time. He denies visual changes or nausea at this time. He denies any right-sided symptoms. He reports left-sided weakness. He denies paresthesias. CT imaging is obtained in the Emergency Department, revealing a large subacute/chronic subdural hematoma with prominent midline shift for which neurosurgery is consulted. PAST MEDICAL HISTORY: Includes dyslipidemia, benign prostatic hypertrophy, history of right shoulder surgery. FAMILY HISTORY: He denies. SOCIAL HISTORY: He does not use tobacco, alcohol or illicit drugs. ALLERGIES: He has no known drug allergies. HOME MEDICATIONS: Include Lipitor, latanoprost eye drops and Claritin. REVIEW OF SYSTEMS: He reports the aforementioned headache and left-sided weakness. He denies any fevers or chills. He denies any visual changes. He denies any rash, itching, chest pain, syncope, palpitations, edema, shortness of breath, cough, nausea, vomiting, abdominal pain. He denies urinary or bowel changes. He denies any back or joint pains. Denies any anxiety or depression. A 10-point review of systems is negative except for the aforementioned. PHYSICAL EXAMINATION: GENERAL: He is awake, alert and oriented x 4. He is in no acute distress at this time. VITAL SIGNS: His temperature is 98.0 degrees Fahrenheit, pulse 64, respirations 18, blood pressure is 146/79. O2 sat is 97% on room air. HEENT: Head is normocephalic without evidence of trauma. NECK: Supple and nontender. LUNGS: Respirations are even and nonlabored. He has equal chest rise. Peripheral pulses are palpated. CARDIOVASCULAR: Pulse is regular. ABDOMEN: Soft and nontender. EXTREMITIES: He has no cyanosis, clubbing or edema in the extremities. NEUROLOGIC: He is awake, alert and oriented x 4. Cranial nerves 2-12 are intact bilaterally. Strength is 5/5 in all major muscle groups in his right upper and right lower extremity. His strength is 4/5 in all major muscle groups in his left upper and left lower extremity with the exception of 4-/5 shoulder abduction and hip flexion. His speech is fluent. His sensation is intact to light touch. Deep tendon reflexes are relatively symmetric. His gait is not tested at the present time. He has no laceration, excessive bruising or other skin lesions identified. PSYCHIATRIC: He is with appropriate mood and affect. RADIOLOGY: There is a noncontrast CT scan of the head showing an approximately 2-3 cm large right convexity subdural hematoma that has a density consistent with a subacute chronic appearance. There is approximately 2 cm midline shift. PERTINENT LABORATORY DATA: He has an INR of 1.0 and his PTT is 24, sodium 144. ASSESSMENT AND PLAN: This is a 66-year-old gentleman with a large subacute chronic subdural hematoma with significant midline shift who has developed left-sided weakness and increased headaches. Given the significance of the radiographic findings with correlate symptoms, it was felt that he would benefit from surgical decompression. The risks, benefits and expectations of king holes on the right side of the head for evacuation of subdural hematoma with a possibility of conversion to open craniotomy were discussed with the patient with explanation of the risks, benefits and expectations. After consideration of these things, he elects to proceed. He will go to the operating room for the aforementioned procedure. All questions answered. All in agreement. MILLER SINGH MD DR: TOPHER/praveen JOB#: [id number] / [id number]
== END 2016-07-24 11:45 | disposition home or self-care (01) | DRG 27 ==
LOC: ER 17:01 → 1 WEST ICU 19:42 → ER 21:11 → 4 NORTH 07-23 14:05
PROVIDERS: ADMIT Internal Medicine; ATTEND Internal Medicine
PROC: 00C43ZZ Extirpation of Matter from Intracranial Subdural Space, Percutaneous Approach (ICD-10-PCS; principal; 2016-07-22 21:30)
DX: S06.5X0A Traumatic subdural hemorrhage without loss of consciousness, initial encounter (principal); E78.5 Hyperlipidemia, unspecified; N40.0 Benign prostatic hyperplasia without lower urinary tract symptoms; X58.XXXA Exposure to other specified factors, initial encounter; Y93.89 Activity, other specified; Y92.89 Other specified places as the place of occurrence of the external cause; Z79.899 Other long term (current) drug therapy
CPT/HCPCS: 36415; 70450; 80048; 80076; 84484; 85027; 85610; 85730; 86850; 86900; 86901; 87641; 93005; C1713; G0481; J0690; J1100; J2370; J2405; J2704; J2710; J3010; J3490; J7030; J7120; 99285-25

== ENCOUNTER → 2016-09-09 | Outpatient (CLI) | payer MEDICARE, OTHER ==
[~2016-09-09] MED LIST: ATOR10TA PO; LATA2.5D3 EACHEYE; LORA10TA68 PO; POLY17PO29 PO
--- NOTE | 2016-09-09 12:57 | KCIC ---
PROCEDURE CT head without contrast. HISTORY Subdural hematoma TECHNIQUE Noncontrast CT imaging was performed of the head. Exposure: One or more of the following individualized dose reduction techniques were utilized for this exam: 1. Automated exposure control. 2. Adjustment of the mA and/or kV according to patient size. 3. Use of iterative reconstruction technique. COMPARISON July 23, 2016 FINDINGS Previously seen right subdural drain has been removed. There are again right frontal parietal king holes. There is residual subdural hematoma along the right lateral convexity greatest of the frontal parietal regions. This in greatest transverse thickness measures up to 1.4 centimeters, overall extent and size of the hematoma similar although now more hyperdense than previously. Previously seen pneumocephalus has resolved. There is persistent [id number] midline shift on the order of 0.4 cm which has decreased from approximately 1 cm previously. Ventricles are not dilated. There is no focus of parenchymal hemorrhage. Mastoid air cells and the visualized paranasal sinuses are aerated. IMPRESSION Previously seen right subdural drain has been removed. There is persistent subdural hematoma along the right lateral convexity greatest of the frontal parietal regions, very similar in extent and size although now more hyperdense suggestive of degree of rebleeding. Previously seen pneumocephalus has resolved. There is persistent, although decreased right to left midline shift. Electronically signed by: Ruben Mckenzie MD (September 09, 2016 12:56:51)
== END | disposition home or self-care (01) ==
LOC: KCIC CT 12:08
PROVIDERS: ATTEND Neurological Surgery
DX: I62.00 Nontraumatic subdural hemorrhage, unspecified (principal)
CPT/HCPCS: 70450

== ENCOUNTER → 2016-09-16 | Outpatient (CLI) | payer MEDICARE, OTHER ==
--- NOTE | 2016-09-16 14:58 | KCIC ---
PQRS STATEMENT One or more of the following individualized dose reduction techniques were utilized for this study: 1.Automated exposure control 2.Adjustment of the mA and/or kV according to patient size 3.Use of iterative reconstruction technique CT HEAD Indication: Reason For StudyReason: SUBDURAL HEAMATOMA FOLLOW UP / Spl. Instructions: / History: COMPARISON: CT head exams from Sep 09 2016 and July 23, 2016 TECHNIQUE: 5 mm contiguous axial images were obtained from the skull base to the vertex in both bone and soft tissue algorithm. FINDINGS: Again noted is a right sided subdural hematoma which is still hyperdense suggesting that a component of this hemorrhage is acute. However, hemorrhage is not significantly changed in size compared to the exam from September 09, 2016. The right to left midline shift again measures 4-5 millimeters. The ventricles are not enlarged or face. Basal cisterns are patent. Impression: - Unchanged size and appearance of the right yoko convexity subdural hematoma with stable 4-5 millimeters [id number] midline shift. Electronically signed by: Oral Barba (September 16, 2016 14:56:56)
== END | disposition home or self-care (01) ==
LOC: KCIC CT 14:13
PROVIDERS: ATTEND Neurological Surgery
DX: I62.00 Nontraumatic subdural hemorrhage, unspecified (principal)
CPT/HCPCS: 70450

== ENCOUNTER → 2016-10-18 | Outpatient (CLI) | payer MEDICARE, OTHER ==
--- NOTE | 2016-10-18 14:04 | KCIC ---
CT HEAD WO CONTRAST History: Subdural hematoma follow-up Comparison: September 16, 2016 Technique: Noncontrast [address] images were acquired from the skull base to the vertex. Exposure: One or more of the following individualized dose reduction techniques were utilized for this examination: 1. Automated exposure control 2. Adjustment of the mA and/or kV according to patient size 3. Use of iterative reconstruction technique. Findings: There is persistent subdural hematoma along the right lateral convexity although overall less dense than previously and overall smaller in size. This in greatest dimension measures up to 1 cm in greatest transverse thickness. There are again 2 right frontal parietal king holes. No new focus of parenchymal or extra-axial hemorrhage is identified. Right to left midline shift has decreased, now on the order of 0.2 to 0.3 cm. Poole-white differentiation of the major vascular territories is preserved. Ventricles are not dilated. Visualized paranasal sinuses and mastoid air cells are overall aerated. No acute calvarial abnormality is identified. Impression: 1. Previously seen right lateral convexity subdural hematoma is less dense and smaller in the interval, decreased right to left midline shift. Electronically signed by: Rigoberto Mckenzie MD (10/18/2016 2:01 PM)
== END | disposition home or self-care (01) ==
LOC: KCIC CT 13:01
PROVIDERS: ATTEND Neurological Surgery
DX: S06.5X9A Traumatic subdural hemorrhage with loss of consciousness of unspecified duration, initial encounter (principal); X58.XXXA Exposure to other specified factors, initial encounter; Y93.89 Activity, other specified; Y92.89 Other specified places as the place of occurrence of the external cause; Y99.8 Other external cause status
CPT/HCPCS: 70450